=== PATIENT | male | born 1935 | race Caucasian/White ===

== ENCOUNTER 2018-10-14 10:44 | Emergency (ER) | payer OTHER ==
[~2018-10-14] VITALS: Ht 177.8 cm; Wt 95.0 kg
[2018-10-14 11:16] LABS: HEMATOCRIT 42.1 % (42.0-52.0); HEMOGLOBIN 13.8 gm/dL (14.0-18.0); MCH 34.1 pg (26.0-34.0); MCHC 32.8 g/dL (28.0-37.0); MCV 104.1 fL (80.0-100.0); PLATELET COUNT 136 thou/uL (150-400); RBC 4.05 mil/uL (4.50-6.00); RDW 16.8 % (10.5-14.5); WBC 5.2 thou/uL (4.0-11.0)
[2018-10-14 11:22] LABS: ANION GAP 8 mmol/L (7-16); BUN 22 mg/dL (7-18); CALCIUM 9.4 mg/dL (8.5-10.1); CHLORIDE 106 mmol/L (98-107); CO2 25 mmol/L (21-32); CREATININE 1.2 mg/dL (0.7-1.3); GLUCOSE 105 mg/dL (74-106); POTASSIUM 4.8 mmol/L (3.5-5.1); SODIUM 139 mmol/L (136-145)
[2018-10-14 11:31] LABS: MAGNESIUM 2.3 mg/dL (1.8-2.4); TROPONIN-I <0.06 ng/mL (<0.06)
[2018-10-14 11:40] LABS: ABSOLUTE NEUTROPHILS 2.9 thou/uL (1.4-8.2); PLATELET ESTIMATE NORMAL
[2018-10-14 12:38] VITALS: BP 149/44
--- NOTE | 2018-10-14 17:03 | EKG ---
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: : 1935 Requested By: aMtt Antoine Order Number: [id number] MD: Castro Benitez Measurements Intervals Corrigan Rate: 45 P: 78 NV: 275 QRS: -86 QRSD: 164 T: 79 QT: 506 QTc: 438 Interpretive Statements Sinus bradycardia Prolonged NV interval LVH with IVCD Electronically Signed On 10-14-2018 17:03:43 CDT by Castro Benitez [email or web address] ��������������������������������������������� <ELECTRONICALLY SIGNED> ���������������������������������������� By: Csatro Benitez MD ��������������������������������������������� 10/14/18 1703 1042 1042 Castro Benitez MD /GLYNN
== END 2018-10-14 13:44 | disposition home or self-care (01) ==
LOC: ER 10:44
PROVIDERS: Emergency Medicine
DX: R00.1 Bradycardia, unspecified (principal); I48.91 Unspecified atrial fibrillation; Z96.651 Presence of right artificial knee joint; Z85.828 Personal history of other malignant neoplasm of skin; Z87.891 Personal history of nicotine dependence; Z95.1 Presence of aortocoronary bypass graft